=== PATIENT | male | born 1960 | race Two or more races ===

== ENCOUNTER 2019-06-02 03:11 | Emergency (ER) | payer OTHER ==
[~2019-06-02] VITALS: Ht 160 cm; Wt 67.3 kg
[2019-06-02] MEDS ORDERED: UNKNOWN HTN MED PO (03:21)
[2019-06-02] MEDS ORDERED: KETOROLAC TROMETHAMINE 60 MG/2 ML VIAL IM ONE (04:45)
[2019-06-02 05:00] VITALS: BP 153/94
[2019-06-02] MEDS ORDERED: COLCHICINE 0.6 MG TABLET PO ONE ×2 (05:00)
== END 2019-06-02 05:15 | disposition home or self-care (01) ==
LOC: EMS 03:12
DX: M10.9 Gout, unspecified (principal); I10 Essential (primary) hypertension; F17.210 Nicotine dependence, cigarettes, uncomplicated; Z98.890 Other specified postprocedural states
CPT/HCPCS: 96372; 99283; J1885

== ENCOUNTER 2019-11-20 15:39 | Emergency (ER) | payer OTHER ==
[~2019-11-20] VITALS: Ht 160 cm; Wt 67.3 kg
[2019-11-20] MEDS ORDERED: PERTUSS(ACELL),DIPH,TET VAC/PF 0.5 ML VIAL IM ONE (17:00)
[2019-11-20] MEDS ORDERED: ACETAMINOPHEN 325 MG TABLET PO ONE (17:00)
[2019-11-20] MEDS ORDERED: BACITRACIN 0.9 GM PACKET OINTMENT TP ONE (17:00)
[2019-11-20] MEDS ORDERED: POVIDONE-IODINE 10% 15 ML SOLUTION UD TP ONE (17:00)
[2019-11-20 18:00] VITALS: BP 135/80
== END 2019-11-20 18:00 | disposition home or self-care (01) ==
LOC: EMS 15:39
DX: S61.204A Unspecified open wound of right ring finger without damage to nail, initial encounter (principal); I10 Essential (primary) hypertension; F17.210 Nicotine dependence, cigarettes, uncomplicated; Z98.890 Other specified postprocedural states; W26.8XXA Contact with other sharp object(s), not elsewhere classified, initial encounter; Y93.89 Activity, other specified; Y92.89 Other specified places as the place of occurrence of the external cause; Y99.8 Other external cause status
CPT/HCPCS: 90471; 90715

== ENCOUNTER 2025-05-12 15:02 | Emergency (ER) | payer MEDICARE, MEDICAID ==
[~2025-05-12] VITALS: Ht 162.6 cm; Wt 79.5 kg
[2025-05-12] MEDS ORDERED: ATOR40TA71 PO (15:13)
[2025-05-12] MEDS ORDERED: TAMS0.4C94 PO (15:13)
[2025-05-12] MEDS ORDERED: LOSA-382 PO (15:13)
[2025-05-12] MEDS ORDERED: COLC-3 PO (15:13)
[2025-05-12 15:14] VITALS: BP 174/94; PULSE 74; RESP 18; TEMP 97.9; O2SAT 96
== END 2025-05-12 17:44 | disposition home or self-care (01) ==
LOC: EMS 15:02
DX: Z02.83 Encounter for blood-alcohol and blood-drug test (principal); I10 Essential (primary) hypertension; M10.9 Gout, unspecified; Z98.890 Other specified postprocedural states; Z79.899 Other long term (current) drug therapy
CPT/HCPCS: 99283; 36415; G0480